=== PATIENT | male | born 1955 | race African-American/Black ===

== ENCOUNTER 2019-06-11 08:33 | Inpatient (IN) | payer BC ==
[~2019-06-11] VITALS: Ht 185.4 cm; Wt 92.1 kg
[~2019-06-11 08:33] MED LIST: LIDODERM1 EACH TOP; LISINOPRIL10 MG PO; VALACYCLOVIR500 MG PO; VITAMIN A10000 UNI3 PO; VITAMIN E1000 UNIT PO
[2019-06-11 10:12] VITALS: BP 140/85
[2019-06-11 13:33] VITALS: BP 129/78
[2019-06-11 14:17] VITALS: BP 136/75
[2019-06-11 19:35] VITALS: BP 123/81
--- NOTE | 2019-06-11 20:02 | NUR ---
A/O, calm and pleasant; complains of pain in the surgical area, pain medication given and worked; urine out put normal, reported no passing gas yet; small dry blood on dressing, vss, afebrile.
--- NOTE | 2019-06-12 03:00 | NUR ---
S/P RIGHT HIP. PT WITH KIZZY AND HEMOVAC IN PLACE. SCDS AND TEDS IN PLACE. USING URINAL. RATES PAIN AT A 5/10, REFUSED PAIN MEDS. IVF INFUSING, IV ABTS GIVEN. AFEBRILE.ICE ALIX USED.CALL APPROPRIATELY.
--- NOTE | 2019-06-12 03:00 | NUR ---
R HIP WITH KIZZY DRSG D/I.PT BEEN USING ICE ALIX ON AND OFF. PATIENT WAS IN SOME PAIN AT THE START OF SHIFT BUT ONLY WANTED HALF THE 10/325 PERCOCET. GIVEN TYLENOL FOR FEVER. PT WAS ABLE TO STAND AND WALK AROUND THE ROOM A LITTLE USING ROLLER WALKER. SCDS AND TEDS IN PLACE.PT APPEARS TO HAVE SLEPT THRO NIGHT. PLAN TO D/C TODAY.
[2019-06-12 03:30] VITALS: BP 124/77
[2019-06-12 05:56] LABS: HEMATOCRIT 36.1 % (42.0-52.0); HEMOGLOBIN 11.6 gm/dL (14.0-18.0); MCH 26.6 pg (26.0-34.0); MCV 83.1 fL (80.0-100.0); RBC 4.35 mil/uL (4.50-6.00); RDW 14.3 % (10.5-14.5); WBC 10.8 thou/uL (4.0-11.0)
[2019-06-12 08:22] LABS: CALCIUM 8.4 mg/dL (8.5-10.1); POTASSIUM 4.4 mmol/L (3.5-5.1)
[2019-06-12 09:22] VITALS: BP 122/78
--- NOTE | 2019-06-12 14:24 | NUR ---
PT ADMITTED RELATED TO OA OF HIP, HIP PAIN. CM REVIEWED CHART AND SPOKE WITH CARE TEAM. CM MET WITH PT AT BEDSIDE THIS DAY. PT INDICATED HE LIVES IN A HOUSE WITH HIS SPOUSE WITH 6 STEPS TO ENTER AND 6 STEPS INSIDE. PT INDICATED HE NEEDS A FWW FOR HOME USE. CM ORDERED FWW THROUGH [facility] [place] IT WILL BE DELIVERED THIS AFTERNOON. PT INDICATED HE HOPES TO DISCHARGE HOME THIS DAY. CM TO FOLLOW UP WITH PT AND PHYSICAIN TO DETERMINE IF PT IS TO OP PT AND OT OR IF PT WILL NEED HH SERVICES. CM TO FOLLOW INDICATED WITH DC PLANNING.
--- NOTE | 2019-06-12 14:55 | NUR ---
Assumed care of pt at 0700. Dressing on right hip c/d/i. Old drainage present from surgery. No change. Hemovac drain discontinued. Pt tolerated well. Worked with physical therapy today. Possible d/c to home depending on surgeon decision. Pt does no want to take narcotics. Tylenol ordered. WBT. Family at bedside. Fall precautions in place. Will continue to monitor.
[2019-06-12 17:10] VITALS: BP 129/75
--- NOTE | 2019-06-12 17:46 | O ---
Formerly [facility] [place] [address] OPERATIVE REPORT Name: NASIMA SOTO Room #: 439-P [facility] IN M.R.#: [id number] Admission: 06/11/19 Attend Phys: Zaire Aguilar MD Discharge: Date of : 59 Report #: [id number] THIS REPORT FOR: cc: Bruce Dimas James A. DO Clymer, David J. MD ~ CC: Zaire Dimas DATE OF SERVICE: 06/11/2019 PREOPERATIVE DIAGNOSIS: End-stage degenerative arthritis, right hip. POSTOPERATIVE DIAGNOSIS: End-stage degenerative arthritis, right hip. PROCEDURE: Right total hip arthroplasty. SURGEON: Zaire Aguilar MD INDICATIONS: This healthy, active, fit 64-year-old gentleman has rather severe progressive degenerative arthritis involving the right hip. He has tried conservative measures without benefit. He states he is unable to continue an active lifestyle and has pain with gait and even at rest. He has elected to go ahead with total hip arthroplasty. DESCRIPTION OF PROCEDURE: The patient was taken to the operating room where he was placed under general anesthesia. Prophylactic intravenous antibiotics were administered. He was positioned in the left lateral decubitus position. The right hip, thigh and leg were meticulously prepped and draped. A slightly curving posterolateral skin incision was made and carried through fascia and gluteus to expose the posterior aspect of the hip joint. The short external rotators and capsule were taken down and preserved and tagged with several #1 FiberWire sutures. The hip was found to be markedly arthritic with marked spurring all around the acetabular rim and a very tight contracted joint capsule. The osteophytes were removed with osteotomes and rongeurs. This allowed a posterior hip dislocation. Marked degenerative change on both the femoral head and acetabulum was noted. Attention was first directed to the femur. A femoral neck osteotomy was performed. The canal was prepared and then opened with reamers and hand broaches. The Gooden and Nephew hip system was utilized. A size 13 press-fit stem seemed to fit most nicely. The trial stem was removed and attention directed to the acetabulum. Adequate exposure was established and the acetabulum was sequentially reamed, gradually advancing to a size 56 mm reamer. A Gooden and Nephew three-hole hemispherical StikTite shell was then inserted. This was positioned in alignment with his true acetabulum, which placed this in [address] [address] OPERATIVE REPORT Name: NASIMA SOTO A Room #: 439-P [facility] IN .R.#: [id number] Admission: 06/11/19 Attend Phys: Zaire Aguilar MD Discharge: Date of : 59 Report #: [id number] about 45 degrees off of vertical and about 20 degrees of anteversion. It seated nicely and appeared to be secure. In addition, three cancellous screws were placed through the atypical holes with good purchase on periacetabular bone. A polyethylene liner was then placed using a 40 mm inside diameter liner with the 20-degree elevated rim positioned at about the 10 o'clock posterior position. It seated nicely and was snapped into place and felt to be secure. A Gooden and Nephew size 13 Synergy stem was then inserted, positioning this in about 20 degrees of anteversion. It seated nicely and appeared to be secure. Trial reduction was performed and a +8 mm neck length seemed to fit most appropriately. This resulted in satisfactory leg length, range of motion and stability. The anterior capsule was still moderately tight from his preoperative condition. The posterior capsule and short external rotators seemed to be satisfactory and repairable. A permanent Oxinium 40 mm head with a +8 mm neck length was then inserted on to the femoral stem. The hip was reduced, once again alignment, range of motion, stability and leg length were assessed and felt to be satisfactory. The capsule and short external rotators were repaired using several #1 FiberWire suture and was brought through drill holes in the greater trochanter, this added nicely to hip stability. A single Hemovac was left in the wound exiting through a separate stab incision. The fascia was closed with multiple #1 Vicryl sutures. The subcutaneous tissues were closed with 0 Monocryl. The skin was closed with skin nila. A sterile dressing was applied. The patient was awakened and returned to recovery room in good condition. <ELECTRONICALLY SIGNED> By: Zaire Aguilar MD 06/12/19 1746 1225 1239 Zaire Aguilar MD /nt
[2019-06-12 20:10] VITALS: BP 137/80
[2019-06-13 04:35] VITALS: BP 122/82
[2019-06-13 04:39] LABS: HEMATOCRIT 34.2 % (42.0-52.0); HEMOGLOBIN 10.8 gm/dL (14.0-18.0); MCH 26.1 pg (26.0-34.0); MCHC 31.7 g/dL (28.0-37.0); MCV 82.3 fL (80.0-100.0); RBC 4.15 mil/uL (4.50-6.00); RDW 14.4 % (10.5-14.5); WBC 12.5 thou/uL (4.0-11.0)
[2019-06-13 08:48] VITALS: BP 128/77
[2019-06-13 09:30] VITALS: BP 128/77
--- NOTE | 2019-06-13 13:18 | NUR ---
Assumed care of pt at 0700. Pt a&ox4. Pain controlled with prn pain meds. Dressing intact. Worked with physical therapy. Up SBA with walker and gait-belt. Discharging to home.
--- NOTE | 2019-06-13 14:16 | NUR ---
CARE TEAM INDICATED PT IS MEDICALLY STABLE TO DC HOME THIS DAY. PT WAS ISSUED A FWW BY [facility] FOR HOME USE. PT TO FOLLOW UP WITH [facility] AND INITIATE OP PT AND OT ONCE INDICATE. NO OTHER CM INTERVENTION INDICATED. CASE CLOSED.
--- NOTE | 2019-06-14 07:40 | D ---
[facility] [place] [address] DISCHARGE SUMMARY Name: NASIMA SOTO A Room #: 439-P [facility] IN .R.#: [id number] Admission: 06/11/19 Attend Phys: Zaire Aguilar MD Discharge: 06/13/19 Date of : 59 Report #: [id number] THIS REPORT FOR: cc: Bruce Dimas James A. DO Clymer, David J. MD ~ THIS REPORT FOR: //name// CC: Zaire Dimas TENTATIVE DATE OF DISCHARGE: 06/13/2019 FINAL DIAGNOSIS: End-stage degenerative arthritis, right hip. OPERATION PROCEDURES: Right total hip arthroplasty. 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 He complains of progressive right hip pain. Clinical exam and x-rays confirm end-stage degenerative arthritis with significant deformity. He has elected to go ahead with right total hip arthroplasty. HOSPITAL COURSE: The patient was admitted and taken to the operating room on 06/11/2019. He underwent right total hip arthroplasty, which he tolerated well. Postoperatively, he was able to advance activity in a gradual fashion with organized therapy and assistance. He was able to resume a regular diet. He was placed on oral analgesics and an oral anticoagulation regimen. He resumed his regular medications. He made excellent progress on the first postoperative day and was actually walking in the price and on stairs with some assistance. He feels he is close to discharge home with family assistance, but is not fully safe and functional and independent. He is anticipating he is ready to go home tomorrow on 06/13/2019. DISCHARGE MEDICATIONS: Include lisinopril 10 mg daily, vitamin A once daily, vitamin E once daily, lidocaine patch p.r.n., Xarelto 10 mg daily, hydrocodone 10 mg q.6 hours p.r.n. for pain. DISCHARGE INSTRUCTIONS: He will continue with moderate activity at home with assistance as needed. He will use a walker for careful ambulation with weightbearing as tolerated. I have asked him to call should there be any [facility] [address] [place] [address] DISCHARGE SUMMARY Name: NASIMA SOTO Room #: 439-P [facility] IN [facility]#: [id number] Admission: 06/11/19 Attend Phys: Zaire Aguilar MD Discharge: 06/13/19 Date of : 59 Report #: [id number] problems or questions, we can see him back in my office next week for routine followup and again the following week for suture removal. <ELECTRONICALLY SIGNED> By: Zaire Aguilar MD 06/14/19 0740 1750 1829 Zaire Aguilar MD /nt
== END 2019-06-13 14:09 | disposition home or self-care (01) | DRG 470 ==
LOC: OR 08:33 → TBA 08:36 → OR 10:11 → 4S 10:12 → TBA 10:39 → EDSTATUS 13:08 → OR 13:11 → TBA 16:21 → ENTRNSPT 06-13 13:27 → EDTRNSPTSTS 06-13 13:29 → 4S 06-13 14:09
PROVIDERS: ADMIT Orthopaedic Surgery
PROC: 0SR906A Replacement of Right Hip Joint with Oxidized Zirconium on Polyethylene Synthetic Substitute, Uncemented, Open Approach (ICD-10-PCS; principal; 2019-06-11)
DX: M16.11 Unilateral primary osteoarthritis, right hip (principal); I10 Essential (primary) hypertension; Z79.891 Long term (current) use of opiate analgesic; Z79.899 Other long term (current) drug therapy
CPT/HCPCS: 10102; 50010; 50101; 50414; 51412; 53000; 53368; 56521; 56525; 56530; 57095; 57103; 62110; 62900; 70005

== ENCOUNTER → 2020-01-03 | Outpatient (CLI) | payer BC | LOC: CAT 14:31 | PROVIDERS: ATTEND Nurse Practitioner | DX: K76.89 Other specified diseases of liver (principal) ==

== ENCOUNTER → 2020-07-04 | Outpatient (CLI) | payer BC | LOC: MRI 11:46 | PROVIDERS: ATTEND Family Medicine | DX: M75.101 Unspecified rotator cuff tear or rupture of right shoulder, not specified as traumatic (principal); M19.011 Primary osteoarthritis, right shoulder ==

== ENCOUNTER → 2020-07-14 | Outpatient (CLI) | payer BC | LOC: LAB 13:50 | PROVIDERS: ATTEND Family Medicine | DX: J02.9 Acute pharyngitis, unspecified (principal); R05 Cough; R51.9 Headache, unspecified; Z20.822 Contact with and (suspected) exposure to COVID-19 ==

== ENCOUNTER 2021-04-24 12:56 | Emergency (ER) | payer OTHER ==
[~2021-04-24] VITALS: Ht 185.4 cm; Wt 90.7 kg
[2021-04-24 13:36] LABS: ABSOLUTE NEUTROPHILS 2.4 thou/uL (1.4-8.2); BASOPHILS 0.4 % (0.0-2.0); EOSINOPHILS 0.4 % (0.0-3.0); HEMATOCRIT 43.5 % (42.0-52.0); HEMOGLOBIN 13.9 gm/dL (14.0-18.0); LYMPHOCYTES 42.6 % (24.0-44.0); MCH 26.2 pg (26.0-34.0); MCHC 31.9 g/dL (28.0-37.0); MCV 81.9 fL (80.0-100.0); MONOCYTES 9.8 % (1.0-8.0); PLATELET COUNT 253 thou/uL (150-400); POLYS 46.8 % (36.0-66.0); RBC 5.31 mil/uL (4.50-6.00)
[2021-04-24 13:54] LABS: CALCIUM 9.2 mg/dL (8.5-10.1); CREATININE 1.2 mg/dL (0.7-1.3); POTASSIUM 3.7 mmol/L (3.5-5.1)
[2021-04-24 14:05] LABS: ALBUMIN 4.2 g/dL (3.4-5.0); TOTAL BILIRUBIN 0.7 mg/dL (0.2-1.0); TOTAL PROTEIN 7.6 g/dL (6.4-8.2)
[2021-04-24] MEDS ORDERED: LISINOPRIL10 MG PO (15:53)
[2021-04-24 15:54] VITALS: BP 134/89
--- NOTE | 2021-04-25 10:55 | EKG ---
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
--- NOTE | 2021-04-25 10:55 | EKG ---
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
== END 2021-04-24 15:54 | disposition home or self-care (01) ==
LOC: ER 12:56
PROVIDERS: Emergency Medicine
DX: I10 Essential (primary) hypertension (principal); M79.602 Pain in left arm; Z79.899 Other long term (current) drug therapy